=== PATIENT | female | born 1990 | race Caucasian/White ===

== ENCOUNTER 2021-04-07 23:04 | Emergency (ER) | payer OTHER ==
[~2021-04-07] VITALS: Ht 172.7 cm; Wt 70.3 kg
[2021-04-08] MEDS ORDERED: MUPIROCIN15 GM TOP (01:40)
[2021-04-08] MEDS ORDERED: NAPROXEN375 MG PO (01:40)
== END 2021-04-08 03:11 | disposition home or self-care (01) ==
LOC: ER 23:04
DX: S60.562A Insect bite (nonvenomous) of left hand, initial encounter (principal); R21 Rash and other nonspecific skin eruption; W57.XXXA Bitten or stung by nonvenomous insect and other nonvenomous arthropods, initial encounter; Y93.89 Activity, other specified; Y92.89 Other specified places as the place of occurrence of the external cause; Y99.8 Other external cause status